=== PATIENT | female | born 1990 | race Caucasian/White ===

== ENCOUNTER → 2021-05-18 | Outpatient (CLI) | payer OTHER ==
[2021-05-18 13:12] VITALS: BP 134/88; PULSE 96; RESP 16; TEMP 98.7; BMI 32.3
--- NOTE | 2021-05-18 13:39 | P.HPBAR ---
Bariatric H&P - History & Physicial H&P Date: 05/18/21 History & Physicial: Visit/CC: Pursuing panni Patient initial contact: Initial weight: 116.573 kg Initial weight in pounds: 257.00 Height: 5 ft 4.5 in Initial BMI: 43.4 Last weight: Current weight: 86.636 kg Current weight in pounds: 191.00 Current BMI: 32.3 Vantage body weight (based on NIH guidelines): 55.565 kg Excess body weight loss: 49.0% The patient is a 31 year-old F who presents for Bariatric Assessment. She has lost 70+ pounds on her own. She is looking for skin removal. She had rashes of the pannus. She has prescription for skin for 1 year. She reports back pain. She has seen a behavioral health consultant for the skin. Her weight has been stable for 1 month. Needs picture of the skin. Looks 10 pounds pannus. Recommend labs for vitamins level. Past Medical History Past Medical History: No Reported History History of Any Multi-Drug Resistant Organisms: None Reported Past Surgical History: Section, Cholecystectomy, Tubal Ligation Past Anesthesia/Blood Transfusion Reactions: Postoperative Nausea & Vomiting (PONV) Past Psychological History: Depression Additional Psychological History / Comment(s): PPD [id number] Smoking Status: Never smoker Past Alcohol Use History: Occasional Past Drug Use History: None Reported Surgical - Exam Vital Signs Temp Pulse Resp BP 98.7 F 96 16 134/88 05/18/21 13:08 05/18/21 13:08 05/18/21 13:08 05/18/21 13:08 Bariatric Checklist Checklist: Plan: Checklist: EGD: 1. Hiatal hernia: 2. H. Pylori: HgbA1c: Vitamin D: Smoking: Primary care physician referral: Psychiatry clearance: Cardiology clearance: Sleep study: Diet journal: VTE risk score: VTE risk level: Rehab needs at discharge:
[2021-05-18 15:20] LABS: INR 0.9 (<1.2); Partial Thromboplastin Time 22.2 sec (22.0-30.0); Prothrombin Time 9.6 sec (9.0-12.0)
[2021-05-18 18:30] LABS: HCT 41.8 % (37.2-46.3); HGB 12.6 g/dL (12.0-15.0); MCH 25.9 pg (27.0-32.0); MCHC 30.1 g/dL (32.0-37.0); Mean Platelet Volume 10.2 fL (9.5-12.2); NRBC Per 100 WBC 0 /100 WBCS (0.0-0.0); Platelet Count 351 X 10*3/uL (140-440); RBC 4.86 X 10*6/uL (4.10-5.20); RDW 15.4 % (11.5-14.5); WBC 7.74 X 10*3/uL (4.50-10.00)
[2021-05-18 18:48] LABS: % Iron Saturation 7.89 (12.00-45.00); ALT 16 U/L (8-44); AST 14 U/L (13-35); African American GFR (CKD) 104.2 (60.0-200.0); Albumin 4.4 g/dL (3.8-4.9); Albumin/Globulin Ratio 1.85 (1.60-3.17); Alkaline Phosphatase 68 U/L (41-126); BUN/Creat Ratio 14.14 Ratio (12.00-20.00); Blood Urea Nitrogen 12.1 mg/dL (9.0-27.0); Calcium 9.7 mg/dL (8.7-10.3); Carbon Dioxide 24.2 mmol/L (20.0-27.5); Chloride 106 mmol/L (96-109); Ferritin 12.2 ng/mL (10.0-291.0); Globulin 2.4 g/dL (1.6-3.3); Glucose 68 mg/dL (70-110); Iron 33 ug/dL (50-170); Magnesium 2.1 mg/dL (1.5-2.4); Non-African American GFR(CKD) 89.9 (60.0-200.0); Phosphorus 3.4 mg/dL (2.4-5.1); Potassium 4.1 mmol/L (3.5-5.5); Sodium 142 mmol/L (135-145); Total Bilirubin <0.15 mg/dL (0.30-1.20); Total Iron Binding Capacity 413 ug/dL (228-460); Total Protein 6.8 g/dL (6.2-8.2)
[2021-05-18 18:55] LABS: Chol/HDL Ratio 3.62 Ratio; LDL Cholesterol,Calculated 89.1 mg/dL (0.0-131.0); Prealbumin 20.9 mg/dL (18.0-42.0)
[2021-05-19 13:25] LABS: Zinc, Serum 65 ug/dL (60-130)
[2021-05-20 06:17] LABS: Vitamin A 34 ug/dL (38-106)
== END | disposition home or self-care (01) ==
LOC: BARWHC3 12:44
PROVIDERS: ATTEND Surgery Plastic and Reconstructive Surgery
DX: E66.01 Morbid (severe) obesity due to excess calories (principal); E89.1 Postprocedural hypoinsulinemia; D50.8 Other iron deficiency anemias; D50.9 Iron deficiency anemia, unspecified; E44.0 Moderate protein-calorie malnutrition; E44.1 Mild protein-calorie malnutrition; E45 Retarded development following protein-calorie malnutrition; E55.9 Vitamin D deficiency, unspecified; K74.1 Hepatic sclerosis; N19 Unspecified kidney failure; T56.894A Toxic effect of other metals, undetermined, initial encounter; K50.90 Crohn's disease, unspecified, without complications
CPT/HCPCS: 84255; 84134; 84425; 80061; 80053; 82607; 82728; 82525; 82746; 83540; 83550; 83735; 84100; 84443; 84590; 84630; 85027; 85610; 85730; 82306; 83970; 83036; 93005; G0480; G0463; 80323; 99203

== ENCOUNTER → 2021-07-13 | Outpatient (CLI) | payer OTHER ==
[2021-07-13 13:13] VITALS: BP 129/86; PULSE 88; TEMP 97.8; BMI 30.7
--- NOTE | 2021-07-13 13:37 | P.BASOAP ---
Subjective Progress Note Date: 07/13/21 Labs and EKG reviewed. Vitamin A, D, iron is low and fixed. She reports having a hernia. Recommend CT abd pelvis reviewed. She is losing weight. Correct vitamins 1 month. 1 month time repeat and re-check weight. CT abd/pelvis. Objective - Vital Signs Vital signs: Vital Signs Temp 97.8 F 07/13/21 13:09 Pulse 88 07/13/21 13:09 Resp BP 129/86 07/13/21 13:09 Pulse Ox Intake & Output 07/12/21 07/13/21 07/13/21 18:59 06:59 18:59 Weight 82.554 kg Assessment/Plan Plan: Date: 07/13/21 Initial Weight: 116.573 kg Initial BMI: 43.4 Current Weight: 82.554 kg Current BMI: 30.7 Type of Surgery: Total Volume in Band: Previous Volume: Volume Removed: Volume Added: Band Size:
== END | disposition home or self-care (01) ==
LOC: BARWHC3 12:59
PROVIDERS: ATTEND Surgery Plastic and Reconstructive Surgery
DX: K46.9 Unspecified abdominal hernia without obstruction or gangrene (principal)
CPT/HCPCS: 99211

== ENCOUNTER → 2021-08-17 | Outpatient (CLI) | payer OTHER ==
[2021-08-17 13:31] VITALS: BP 115/77; PULSE 87; TEMP 99.2; BMI 30.2
[2021-08-17 15:23] LABS: INR 0.9 (<1.2); Partial Thromboplastin Time 23.4 sec (22.0-30.0)
--- NOTE | 2021-08-17 17:50 | P.PN ---
Subjective Progress Note Date: 08/17/[address] on [address] scan. Needs new labs. Looking into panniculectomy. Objective - Vital Signs Vital signs: Vital Signs Temp 99.2 F 08/17/21 13:27 Pulse 87 08/17/21 13:27 Resp BP 115/77 08/17/21 13:27 Pulse Ox FiO2 Intake & Output 08/16/21 08/17/21 08/17/21 18:59 06:59 18:59 Weight 81.193 kg
[2021-08-17 18:09] LABS: HCT 44.1 % (37.2-46.3); MCH 26.5 pg (27.0-32.0); MCHC 31.7 g/dL (32.0-37.0); MCV 83.4 fL (80.0-97.0); Mean Platelet Volume 10.2 fL (9.5-12.2); NRBC Per 100 WBC 0 /100 WBCS (0.0-0.0); Platelet Count 305 X 10*3/uL (140-440); RBC 5.29 X 10*6/uL (4.10-5.20); RDW 14.8 % (11.5-14.5); WBC 8.26 X 10*3/uL (4.50-10.00)
[2021-08-17 18:22] LABS: Chol/HDL Ratio 3.75 Ratio; LDL Cholesterol,Calculated 114.6 mg/dL (0.0-131.0); Prealbumin 24.8 mg/dL (18.0-42.0); VLDL Calculation 10.78 mg/dL (5.00-40.00)
[2021-08-17 18:26] LABS: % Iron Saturation 8.69 (12.00-45.00); ALT 16 U/L (8-44); AST 13 U/L (13-35); African American GFR (CKD) 115.3 (60.0-200.0); Albumin 4.5 g/dL (3.8-4.9); Albumin/Globulin Ratio 1.88 (1.60-3.17); Alkaline Phosphatase 61 U/L (41-126); BUN/Creat Ratio 18.55 Ratio (12.00-20.00); Blood Urea Nitrogen 14.6 mg/dL (9.0-27.0); Calcium 9.5 mg/dL (8.7-10.3); Carbon Dioxide 22.3 mmol/L (20.0-27.5); Chloride 103 mmol/L (96-109); Globulin 2.4 g/dL (1.6-3.3); Glucose 88 mg/dL (70-110); Iron 35 ug/dL (50-170); Magnesium 2.1 mg/dL (1.5-2.4); Non-African American GFR(CKD) 99.5 (60.0-200.0); Phosphorus 2.9 mg/dL (2.4-5.1); Potassium 4.6 mmol/L (3.5-5.5); Sodium 138 mmol/L (135-145); Total Iron Binding Capacity 407 ug/dL (228-460); Total Protein 6.9 g/dL (6.2-8.2)
[2021-08-18 14:33] LABS: Zinc, Serum 53 ug/dL (60-130)
== END | disposition home or self-care (01) ==
LOC: BARWHC3 13:01
PROVIDERS: ATTEND Surgery Plastic and Reconstructive Surgery
DX: E66.01 Morbid (severe) obesity due to excess calories (principal); D50.8 Other iron deficiency anemias; D50.9 Iron deficiency anemia, unspecified; K91.2 Postsurgical malabsorption, not elsewhere classified; E44.0 Moderate protein-calorie malnutrition; E44.1 Mild protein-calorie malnutrition; E45 Retarded development following protein-calorie malnutrition; E55.9 Vitamin D deficiency, unspecified; K74.1 Hepatic sclerosis; N19 Unspecified kidney failure; T56.894A Toxic effect of other metals, undetermined, initial encounter; K50.90 Crohn's disease, unspecified, without complications
CPT/HCPCS: 84255; 84134; 84425; 80061; 80053; 82607; 82728; 82525; 82746; 83540; 83550; 83735; 84100; 84443; 84590; 84630; 85027; 85610; 85730; 82306; 83970; 83036; 93005; 36415; G0463; 99211

== ENCOUNTER → 2021-09-07 | Outpatient (CLI) | payer OTHER ==
[2021-09-07 13:18] VITALS: BP 133/89; PULSE 112; TEMP 98.2; BMI 30.4
--- NOTE | 2021-09-07 14:11 | P.BASOAP ---
Subjective Progress Note Date: 09/07/21 Ab exercise reviewed obliques Drain management Vitamins described. Send into panniculectomy Images reviewed . Objective - Vital Signs Vital signs: Vital Signs Temp 98.2 F 09/07/21 13:15 Pulse 112 H 09/07/21 13:15 Resp BP 133/89 09/07/21 13:15 Pulse Ox FiO2 Intake & Output 09/06/21 09/07/21 09/07/21 18:59 06:59 18:59 Weight 81.647 kg Assessment/Plan Plan: Date: 09/07/21 Initial Weight: 116.573 kg Initial BMI: 43.4 Current Weight: 81.647 kg Current BMI: 30.4 Type of Surgery: Total Volume in Band: Previous Volume: Volume Removed: Volume Added: Band Size:
== END | disposition home or self-care (01) ==
LOC: BARWHC3 12:54
PROVIDERS: ATTEND Surgery Plastic and Reconstructive Surgery
DX: E66.01 Morbid (severe) obesity due to excess calories (principal); Z68.30 Body mass index [BMI] 30.0-30.9, adult
CPT/HCPCS: 99211

== ENCOUNTER → 2021-11-09 | Outpatient (CLI) | payer OTHER ==
[2021-11-09 13:36] VITALS: BP 129/83; PULSE 99; TEMP 98.2; BMI 32.3
--- NOTE | 2021-11-09 14:02 | P.BASOAP ---
Subjective Progress Note Date: 11/09/21 She reports weight gain due to muscle building exercises. She has got down to 180 but up to 191 pounds. She needs 6 months of stable weight loss. She wants to get down to 180 pounds from August 2021. She is looking into panniculectomy. She reports Vitamin D being low now. She reports right upper quadrant abdominal pain. Recommend right upper quadrant abdominal pain with prior stent from biliary duct injury. Objective - Vital Signs Vital signs: Vital Signs Temp 98.2 F 11/09/21 13:33 Pulse 99 11/09/21 13:33 Resp BP 129/83 11/09/21 13:33 Pulse Ox FiO2 Intake & Output 11/08/21 11/09/21 11/09/21 18:59 06:59 18:59 Weight 86.636 kg Assessment/Plan Plan: Date: 11/09/21 Initial Weight: 116.573 kg Initial BMI: 43.4 Current Weight: 86.636 kg Current BMI: 32.3 Type of Surgery: Total Volume in Band: Previous Volume: Volume Removed: Volume Added: Band Size:
== END | disposition home or self-care (01) ==
LOC: BARWHC3 13:06
PROVIDERS: ATTEND Surgery Plastic and Reconstructive Surgery
DX: Z48.815 Encounter for surgical aftercare following surgery on the digestive system (principal)
CPT/HCPCS: 99211

== ENCOUNTER → 2021-12-05 | Outpatient (CLI) | payer OTHER ==
--- NOTE | 2021-12-05 09:26 | US ---
EXAMINATION TYPE: US liver DATE OF EXAM: 12/05/2021 COMPARISON: NONE CLINICAL HISTORY: R10.11 RUQ ABD PAIN. Pt states RUQ pain, GB removed in 2014 TECHNIQUE: Multiple sonographic images of the right upper quadrant are obtained. FINDINGS: EXAM MEASUREMENTS: Liver Length: 15.3 cm CBD: 0.8 cm Right Kidney: 10.2 x 4.5 x 4.2 cm Pancreas: wnl, tail obscured by overlying bowel gas Liver: Visualized portions appeared wnl . No solid or cystic masses. No intrahepatic biliary ductal dilatation. Gallbladder: Surgically absent CBD: wnl for post lindsay Right Kidney: wnl . No shadowing calculi, hydronephrosis, or contour deforming solid mass. IMPRESSION: 1. No acute process. 2. Postcholecystectomy changes.
== END | disposition home or self-care (01) ==
LOC: RADUSWWP 09:00
PROVIDERS: ATTEND Surgery Plastic and Reconstructive Surgery
DX: R10.11 Right upper quadrant pain (principal)
CPT/HCPCS: 76705